=== PATIENT | female | born 1985 | race Caucasian/White ===

== ENCOUNTER 2021-04-30 10:01 | Inpatient (IN) | payer SELFPAY ==
[2021-04-30 10:17] VITALS: BP 104/77; PULSE 93; RESP 18; TEMP 36.7; O2SAT 96
[2021-04-30] MEDS: nicotine 2 mg Gum BUCCAL ×2 (10:36→13:32)
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
[2021-04-30 14:00] VITALS: BP 104/77; PULSE 93; RESP 18; TEMP 36.7; O2SAT 96
[2021-04-30] MEDS: nicotine 21 mg Patch 1 PATCH TRANSDERMA (15:38)
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
[2021-04-30 21:59] VITALS: BP 96/62; PULSE 60; RESP 15; TEMP 37; O2SAT 96
[2021-04-30] MEDS: hyDROXYzine 25 mg Capsule 50 MG PO (22:19)
[2021-04-30] MEDS: trazodone 50 mg Tablet PO (22:19)
[2021-04-30] MEDS: cefdinir 300 MG CAPSULE PO (22:19)
[2021-04-30] MEDS: famotidine 20 mg Tablet PO (22:20)
[2021-04-30] MEDS: prazosin 1 mg Capsule 2 MG PO (22:20)
[2021-05-01 06:00] VITALS: BP 95/65; PULSE 61; RESP 14; TEMP 35.9; O2SAT 98
[2021-05-01] MEDS: cefdinir 300 MG CAPSULE PO ×2 (08:25→21:00)
[2021-05-01] MEDS: famotidine 20 mg Tablet PO ×2 (08:25→21:18)
[2021-05-01] MEDS: duloxetine 60 mg Capsule PO (08:25)
--- NOTE | 2021-05-01 12:27 | NPU.GN ---
[facility] Unit Group Topic: Thought Processing General Mood of Group: Patient did not come to group today.
[2021-05-01 14:00] VITALS: BP 101/67; PULSE 79; RESP 16; TEMP 37.1; O2SAT 98
[2021-05-01] MEDS: nicotine 21 mg Patch 1 PATCH TRANSDERMA (15:47)
--- NOTE | 2021-05-01 16:36 | P.PN_ITS ---
Subjective NPU Subjective: Interval history: I met with the treatment team to discuss the patient's progress. We talked about ways to help her return to her home in [place]. The patient says that her mood has been blah, just kind of here. She does not think she is depressed. She has had severe insomnia. It took her 3 hours to fall asleep, then woke up at 3 AM. She says the voices were the same as always, they never stop. She says she needs to be able to focus, and thinks that noreen pentin was helpful in the past. We talked about gabapentin's inappropriateness for that indication. She denies suicidal and homicidal ideation. She denies medication side effects. Mental Status Exam MSE Comments: I met with the patient on the bench by the nurses station, and she was appropriately groomed and dressed wearing hospital scrubs, calm, cooperative, interactive, good eye contact. No psychomotor agitation or retardation Speech is at a regular rate and rhythm, normal volume, good articulation, not pressured Alert, oriented to person, place, time, situation Attention and concentration were intact to exam Memory is adequate for the interview Mood is euthymic now. Affect is pleasant. Thought process is logical and goal directed. Thought content: She reports auditory but not visual hallucinations, today. No suicidal ideation or homicidal ideation at this point. No delusions are noted Insight and judgment are fair, now that she is sober. Vitals/I&O/Wt Last Vital Signs Temp 97.9 F 05/02/21 20:40 Pulse 84 05/02/21 20:40 Resp 17 05/02/21 20:40 BP 104/75 05/02/21 20:40 Pulse Ox 98 05/02/21 20:40 Weight last 48 hrs Weight 79.379 kg A&P Assessment and plan (1) Acute adjustment disorder with mixed disturbance of emotions and conduct: Status: Acute (2) PTSD (post-traumatic stress disorder): Status: Acute (3) Alcohol use disorder: Status: Acute (4) Borderline personality disorder: Status: Acute Additional A&P Information This is a 35 year old female transferred from the [facility] ED after being found on a bridge with thoughts of jumping off. 1. Continue current medication. 2. Continue every 15 minute checks for safety. 3. Encourage individual, group and milieu therapies. 4. Monitor for signs of alcohol withdrawal. 5. Encourage sober living treatment after discharge at the highest level of care to which he is willing to commit. Involuntary Hold Information 96 Hour Hold: 96 Hour Involuntary Admission: Yes Attestations NPU Medical Necessity Statement*: Psychiatric hospitalization is medically necessary to prevent access to lethal means, to reevaluate medication, and to coordinate a safe discharge. Likely length of stay is 2 to 4 days. Coding Level of Care Code Acute Senior Sas Developer for Aline Severino Diagnoses Acute adjustment disorder with mixed disturbance of emotions and conduct F43.25 PTSD (post-traumatic stress disorder) F43.10 Alcohol use disorder Borderline personality disorder F60.3
[2021-05-01 20:50] VITALS: BP 95/56; PULSE 79; RESP 16; TEMP 36.5; O2SAT 97
[2021-05-01] MEDS: hyDROXYzine 25 mg Capsule 50 MG PO (21:17)
[2021-05-01] MEDS: prazosin 1 mg Capsule 2 MG PO (21:17)
[2021-05-01] MEDS: trazodone 50 mg Tablet PO (21:18)
[2021-05-02 06:00] VITALS: BP 100/67; PULSE 49; RESP 16; TEMP 36.8; O2SAT 97
[2021-05-02] MEDS: cefdinir 300 MG CAPSULE PO ×2 (08:09→20:11)
[2021-05-02] MEDS: duloxetine 60 mg Capsule PO (08:09)
[2021-05-02] MEDS: famotidine 20 mg Tablet PO ×2 (08:09→20:11)
[2021-05-02] MEDS: hyDROXYzine 25 mg Capsule 50 MG PO ×2 (09:08→20:11)
[2021-05-02] MEDS: acetaminophen 325 mg Tablet 650 MG PO ×2 (10:18→20:10)
[2021-05-02 14:00] VITALS: BP 102/68; PULSE 74; RESP 18; TEMP 36.4; O2SAT 96
[2021-05-02] MEDS: nicotine 21 mg Patch 1 PATCH TRANSDERMA (16:50)
--- NOTE | 2021-05-02 17:32 | PM.NPN ---
Subjective NPU Subjective: Interval history: I met with the treatment team to discuss the patient's progress. She has been attending groups. She has made a request to get enough medication to last until her next provider appointment in June. The team is still working on creating a plan for her to get back to [place]. The patient says that she is feeling less stressed now and the voices have been decreasing in intensity and severity as well. She feels that being back on her medications has been helpful. She slept okay last night, though her legs are hurting. She says that her energy level is high and her motivation is good. She denies suicidal and homicidal ideation. She has not been talking to her . She has had some feeling of stomach acid, but is taking famotidine. No other medication side effects. Mental Status Exam MSE Comments: I met with the patient on the bench by the nurses station, and she was appropriately groomed and dressed wearing hospital scrubs, calm, cooperative, interactive, good eye contact. No psychomotor agitation or retardation Speech is at a regular rate and rhythm, normal volume, good articulation, not pressured Alert, oriented to person, place, time, situation Attention and concentration were intact to exam Memory is adequate for the interview Mood is euthymic now. Affect is pleasant. Thought process is logical and goal directed. Thought content: She reports auditory but not visual hallucinations, today. They are quieter than before. No suicidal ideation or homicidal ideation at this point. No delusions are noted Insight and judgment are fair, now that she is sober. Vitals/I&O/Wt Last Vital Signs Temp 97.6 F 05/02/21 14:00 Pulse 74 05/02/21 14:00 Resp 18 05/02/21 14:00 BP 102/68 05/02/21 14:00 Pulse Ox 96 05/02/21 14:00 A&P Assessment and plan (1) Acute adjustment disorder with mixed disturbance of emotions and conduct: Status: Acute (2) PTSD (post-traumatic stress disorder): Status: Acute (3) Alcohol use disorder: Status: Acute (4) Borderline personality disorder: Status: Acute Additional A&P Information This is a 35 year old female transferred from the [facility] ED after being found on a bridge with thoughts of jumping off. 1. Continue current medication. 2. Continue every 15 minute checks for safety. 3. Encourage individual, group and milieu therapies. 4. Monitor for signs of alcohol withdrawal. 5. Encourage sober living treatment after discharge at the highest level of care to which she is willing to commit. Involuntary Hold Information 96 Hour Hold: 96 Hour Involuntary Admission: Yes Attestations NPU Medical Necessity Statement*: Psychiatric hospitalization is medically necessary to prevent access to lethal means, to reevaluate medication, and to coordinate a safe discharge. Likely length of stay is 1 to 3 days. Coding Level of Care Code Acute Inside Horticultural Specialty Grower for Aline Severino Diagnoses Acute adjustment disorder with mixed disturbance of emotions and conduct F43.25 PTSD (post-traumatic stress disorder) F43.10 Alcohol use disorder Borderline personality disorder F60.3
[2021-05-02] MEDS: prazosin 1 mg Capsule 2 MG PO (20:11)
[2021-05-02 20:40] VITALS: BP 104/75; PULSE 84; RESP 17; TEMP 36.6; O2SAT 98
[2021-05-03 06:00] VITALS: BP 104/75; PULSE 84; RESP 17; TEMP 36.6; O2SAT 98
[2021-05-03] MEDS: cefdinir 300 MG CAPSULE PO (09:14)
[2021-05-03] MEDS: duloxetine 60 mg Capsule PO (09:14)
[2021-05-03] MEDS: famotidine 20 mg Tablet PO (09:14)
[2021-05-03 14:00] VITALS: BP 130/60; PULSE 82; RESP 16; TEMP 36.6; O2SAT 98
[2021-05-03 14:07] VITALS: BP 104/75; PULSE 84; RESP 17; TEMP 36.6; O2SAT 98
[2021-05-03] MEDS: pantoprazole DR 40 mg Tablet PO (14:07)
[2021-05-03 17:18] LABS: SARS Covid-2 Antigen Negative (Negative)
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
== END 2021-05-03 17:46 | disposition home or self-care (01) | DRG 882 ==
PROVIDERS: Admitting Provider Psychiatry & Neurology Child & Adolescent Psychiatry; Visit Provider Psychiatry & Neurology Child & Adolescent Psychiatry
DX: F43.25 Adjustment disorder with mixed disturbance of emotions and conduct (principal); R45.851 Suicidal ideations; R45.850 Homicidal ideations; F32.9 Major depressive disorder, single episode, unspecified; F17.210 Nicotine dependence, cigarettes, uncomplicated; F43.10 Post-traumatic stress disorder, unspecified; F41.9 Anxiety disorder, unspecified; G47.00 Insomnia, unspecified; F60.3 Borderline personality disorder
CPT/HCPCS: 87426